=== PATIENT | male | born 1985 | race Two or more races ===

== ENCOUNTER 2018-01-21 17:39 | Emergency (ER) | payer MEDICAID, OTHER ==
[~2018-01-21] VITALS: Ht 177.8 cm; Wt 126.9 kg
[2018-01-21] MEDS ORDERED: GUAI1TBM19 PO (20:02)
[2018-01-21] MEDS ORDERED: BENZ-38 PO (20:02)
[2018-01-21 22:00] VITALS: BP 154/102
== END 2018-01-21 20:40 | disposition home or self-care (01) ==
LOC: ER 17:39
DX: J06.9 Acute upper respiratory infection, unspecified (principal); Z79.899 Other long term (current) drug therapy
CPT/HCPCS: 99283

== ENCOUNTER 2018-12-01 18:03 | Emergency (ER) | payer MEDICAID, OTHER ==
[~2018-12-01] VITALS: Ht 180.3 cm; Wt 122.2 kg
[~2018-12-01 18:03] MED LIST: GUAI1TBM19 PO
[2018-12-01 18:07] VITALS: BP 174/94
--- NOTE | 2018-12-01 19:28 | NUR ---
PA performed drainage of abscess
[2018-12-01] MEDS ORDERED: CEPH-572 PO (19:41)
== END 2018-12-01 19:56 | disposition home or self-care (01) ==
LOC: ER 18:03
DX: L03.011 Cellulitis of right finger (principal); Z79.2 Long term (current) use of antibiotics; Z79.899 Other long term (current) drug therapy
CPT/HCPCS: 10060; 99283